=== PATIENT | male | born 1980 | race Caucasian/White ===

== ENCOUNTER 2019-03-09 15:00 | Emergency (ER) | payer SELFPAY ==
[2019-03-09] MEDS ORDERED: NA CHLORIDE 0.9% 1,000 ML ONE (15:43)
[2019-03-09] MEDS ORDERED: KETOROLAC 30 MG/ML INJ ONE (15:43)
[2019-03-09 15:48] LABS: Absolute Lymphocytes (CBC) 2.6 K/uL (0.7-4.9); Basophils % 0.2 % (0-1.3); Lymphocytes % 31.8 % (15.3-44.8); MPV 8.5 fL (7.6-11.3); RBC Red Blood Cell Count 4.81 M/uL (4.33-5.43)
[2019-03-09 15:50] LABS: Protime INR 1.04
--- NOTE | 2019-03-09 15:52 | RAD REPORT ---
EXAM DESCRIPTION: CT - Head Brain Wo Cont - 03/09/2019 3:42 pm CLINICAL HISTORY: Headache, left arm symptoms COMPARISON: None. TECHNIQUE: Axial 5 mm thick images of the head were obtained without IV contrast. All CT scans are performed using dose optimization technique as appropriate and may include automated exposure control or mA/KV adjustment according to patient size. FINDINGS: No intracranial hemorrhage, mass, edema or shift of mid-line structures. No acute infarcti on changes seen. No abnormal extra-axial fluid collections. Ventricles are normal. Mastoid air cells and visualized portions of the paranasal sinuses are clear of acute finding. No acute bony findings. IMPRESSION: Negative non-contrast CT head examination.
--- NOTE | 2019-03-09 16:58 | RAD REPORT ---
EXAM DESCRIPTION: US - Upper Ext Artery Uni Driss - 03/09/2019 4:34 pm CLINICAL HISTORY: Left arm pool with numbness COMPARISON: None. TECHNIQUE: Visual inspection of the left upper extremity arterial tree performed. Waveforms were obt ained along the length of left upper extremity. FINDINGS: Left subclavian and axillary arteries are widely patent. No focal abnormality seen. The le ft brachials, radial and ulnar arteries are also patent down to the wrist level. No focal flow restri cting lesion identified. IMPRESSION: No abnormality of the left upper extremity arterial tree noted.
[2019-03-09] MEDS ORDERED: METHYLPREDNISOLONE 125 MG INJ ONE (17:15)
--- NOTE | 2019-03-09 18:16 | EDPHYS ---
Physician Documentation [facility] Name: Eyal Tate Age: 38 yrs Sex: Male : 1980 Arrival Date: 03/09/2019 Time: 15:03 Bed 13 Private MD: ED Physician Samuel Tomlin HPI: 03/09 18:55 This 38 yrs old Male presents to ER via Ambulatory with complaints of Cool kdr and Numbness Of Arm. 18:55 The patient or guardian complains of decreased range of motion, pain, that is acute, kdr tenderness. The complaints affect the left bicep and left antecubital area. Context: The problem was sustained at work, resulted from unknown cause. Onset: The symptoms/episode began/occurred acutely. Treatment prior to arrival includes: no previous treatment. Modifying factors: The symptoms are alleviated by nothing. the symptoms are aggravated by movement, bending arm. Associated signs and symptoms: Pertinent positives: Cool and numb to hand and fingers. 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 - Social history:: Smoking status: Patient/guardian denies using tobacco. - Ebola Screening: : No symptoms or risks identified at this time. ROS: 18:55 Constitutional: Negative for fever, chills, and weight loss, Eyes: Negative for injury, kdr pain, redness, and discharge, Neck: Negative for injury, pain, and swelling, Cardiovascular: Negative for chest pain, palpitations, and edema, Respiratory: Negative for shortness of breath, cough, wheezing, and pleuritic chest pain, Abdomen/GI: Negative for abdominal pain, nausea, vomiting, diarrhea, and constipation, Back: Negative for injury and pain, : Negative for injury, bleeding, discharge, and swelling, Skin: Negative for injury, rash, and discoloration, Psych: Negative for depression, anxiety, suicide ideation, homicidal ideation, and hallucinations, Allergy/Immunology: Negative for hives, rash, and allergies, Endocrine: Negative for neck swelling, polydipsia, polyuria, polyphagia, and marked weight changes, Hematologic/Lymphatic: Negative for swollen nodes, abnormal bleeding, and unusual bruising. 18:55 MS/extremity: Positive for pain, tenderness. Exam: 18:55 Constitutional: This is a well developed, well nourished patient who is awake, alert, kdr and in no acute distress. Head/Face: Normocephalic, atraumatic. Eyes: Pupils equal round and reactive to light, extra-ocular motions intact. Lids and lashes normal. Conjunctiva and sclera are non-icteric and not injected. Cornea within normal limits. Periorbital areas with no swelling, redness, or edema. Neck: Trachea midline, no thyromegaly or masses palpated, and no cervical lymphadenopathy. Supple, full range of motion without nuchal rigidity, or vertebral point tenderness. No Meningismus. Chest/axilla: Normal chest wall appearance and motion. Nontender with no deformity. No lesions are appreciated. Cardiovascular: Regular rate and rhythm with a normal S1 and S2. No gallops, murmurs, or rubs. Normal PMI, no JVD. No pulse deficits. Respiratory: Lungs have equal breath sounds bilaterally, clear to auscultation and percussion. No rales, rhonchi or wheezes noted. No increased work of breathing, no retractions or nasal flaring. Abdomen/GI: Soft, non-tender, with normal bowel sounds. No distension or tympany. No guarding or rebound. No evidence of tenderness throughout. Back: No spinal tenderness. No costovertebral tenderness. Full range of motion. Skin: Warm, dry with normal turgor. Normal color with no rashes, no lesions, and no evidence of cellulitis. Neuro: Awake and alert, GCS 15, oriented to person, place, time, and situation. Cranial nerves II-XII grossly intact. Motor strength 5/5 in all extremities. Sensory grossly intact. Cerebellar exam normal. Normal gait. Psych: Awake, alert, with orientation to person, place and time. Behavior, mood, and affect are within normal limits. 18:55 Musculoskeletal/extremity: ROM: limited active range of motion, limited passive range of motion, in the left arm, Circulation is intact in all extremities. numbness, Minor subjective paresthesias to finger tips Vital Signs: 15:05 BP 131 / 105; Pulse 89; Resp 16; Temp 97.8; Pulse Ox 100% on R/A; Weight 77.11 kg; hb Height 6 ft. (182.88 cm); Pain 7/10; 16:00 BP 135 / 82; Pulse 72; Resp 18; Pulse Ox 99% on R/A; aj1 16:30 BP 124 / 88; Pulse 68; Resp 18; Pulse Ox 100% on R/A; aj1 17:00 BP 113 / 87; Pulse 72; Resp 18; Pulse Ox 100% on R/A; aj1 17:24 BP 105 / 66; Pulse 66; Resp 19; Pulse Ox 100% on R/A; aj1 18:06 BP 111 / 70; Pulse 71; Resp 18; Pulse Ox 100% on R/A; aj1 18:35 BP 120 / 86; Pulse 66; Resp 16; Pulse Ox 97% on R/A; aj1 15:05 Body Mass Index 23.06 (77.11 kg, 182.88 cm) hb MDM: 18:14 Patient medically screened. kdr 18:55 Data reviewed: vital signs, nurses notes, lab test result(s), radiologic studies. kdr Counseling: I had a detailed discussion with the patient and/or guardian regarding: the historical points, exam findings, and any diagnostic results supporting the discharge/admit diagnosis, lab results, radiology results, the need for outpatient follow up. ED course: The patient states he extended his left arm and felt a "pop" then all of his s/s resolved.. 03/09 15:24 Order name: CBC with Diff kdr 03/09 15:24 Order name: Chem 7 kdr 03/09 15:24 Order name: PT-INR kdr 03/09 15:57 Order name: CBC with Automated Diff EDIA 03/09 16:02 Order name: Protime (+INR) EDIA 03/09 16:06 Order name: Basic Metabolic Panel EDIA 03/09 15:31 Order name: CT Head Brain wo Cont kdr Administered Medications: 15:57 Drug: TORadol - Ketorolac 15 mg Route: IVP; Site: right antecubital; aj1 16:30 Follow up: Response: No adverse reaction; Pain is unchanged, physician notified aj1 15:57 Drug: NS 0.9% 1000 ml Route: IV; Rate: 1 bolus; Site: right antecubital; aj1 17:24 Follow up: IV Status: Completed infusion; IV Intake: 1000ml aj1 17:18 Drug: SOLU-Medrol 125 mg Route: IVP; Site: right antecubital; aj1 18:58 Follow up: Response: No adverse reaction aj1 Disposition: 03/09/19 18:14 Discharged to Home. Impression: Pain in left upper arm. - Condition is Stable. - Discharge Instructions: Musculoskeletal Pain, Heat Therapy, [id number]. - Prescriptions for Ibuprofen 800 mg Oral Tablet - take 1 tablet by ORAL route every 8 hours As needed take with food; 30 tablet. Medrol (Bhargav) 4 mg Oral Tablets, Dose Pack - take 1 tablet by ORAL route as directed - follow package instructions; 1 packet. - Medication Reconciliation Form, Thank You Letter form. - Follow up: Private Physician; When: 2 - 3 days; Reason: If symptoms return, Further diagnostic work-up, Recheck today's complaints, Continuance of care, Re-evaluation by your physician. - Problem is new. - Symptoms are resolved. Signatures: Dispatcher [employer] EDReina Berumen RN RN aj1 Samuel Tomlin MD MD [facility] Haleigh Grubbs RN RN Corrections: (The following items were deleted from the chart) 19:04 18:14 03/09/2019 18:14 Discharged to Home. Impression: Pain in left upper arm. aj1 Condition is Stable. Forms are Medication Reconciliation Form, Thank You Letter, Antibiotic Education, Prescription Opioid Use. Follow up: Private Physician; When: 2 - 3 days; Reason: If symptoms return, Further diagnostic work-up, Recheck today's complaints, Continuance of care, Re-evaluation by your physician. Problem is new. Symptoms are resolved. kdr
--- NOTE | 2019-03-09 18:16 | ER ---
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 hb VAN NEGATIVE. Hand is cool to touch and pale, radial pulse +2 in triage. Transition of care: patient was not received from another setting of care. Onset of symptoms was March 09, 2019 at 13:00. Risk Assessment: Do you want to hurt yourself or someone else? Patient reports no desire to harm self or others. Initial Sepsis Screen: Does the patient meet any 2 criteria? No. Patient's initial sepsis screen is negative. Does the patient have a suspected source of infection? No. Patient's initial sepsis screen is negative. Care prior to arrival: None. 15:04 Method Of Arrival: Ambulatory hb 15:04 Acuity: ANNY 2 hb 15:[address] Tomlin notified. hb Triage Assessment: 15:04 General: Appears in no apparent distress. Behavior is calm, cooperative. Pain: Pain hb currently is 7 out of 10 on a pain scale. Neuro: Level of Consciousness is awake, alert, obeys commands, Oriented to person, place, time, situation. Cardiovascular: Capillary refill < 3 seconds Patient's skin is warm and dry. Respiratory: Airway is patent Respiratory effort is even, unlabored, Respiratory pattern is regular, symmetrical. Musculoskeletal: left hand pale and cool, radial pulse 2+. 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 - Social history:: Smoking status: Patient/guardian denies using tobacco. - Ebola Screening: : No symptoms or risks identified at this time. Screenin:15 Abuse screen: Denies threats or abuse. Denies injuries from another. Nutritional aj1 screening: No deficits noted. Tuberculosis screening: No symptoms or risk factors identified. 19:03 Fall Risk None identified. aj1 Assessment: 15:10 Reassessment: Left hand now pink and warm. Pt still reports numbness and pain in hand. Dr. Tomlin and Gilma RN notified. . 15:15 General: Appears in no apparent distress. uncomfortable, Behavior is calm, cooperative, aj1 appropriate for age. Pain: Complains of pain in back and left bicep Pain does not radiate. Pain currently is 6 out of 10 on a pain scale. 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 Gait is steady, Speech is normal, Facial symmetry appears normal, Reports numbness in left arm Left arm appears pale, but radial pulse is palpable. Cardiovascular: Patient's skin is warm and dry. Respiratory: Airway is patent Respiratory effort is even, unlabored, Respiratory pattern is regular, symmetrical. GI: No signs and/or symptoms were reported involving the gastrointestinal system. : No signs and/or symptoms were reported regarding the genitourinary system. EENT: No signs and/or symptoms were reported regarding the EENT system. Derm: Skin is pink, warm \T\ dry. paleness noted to left arm. Musculoskeletal: Range of motion: intact in all extremities. 16:10 Reassessment: Patient appears in no apparent distress at this time. No changes from aj1 previously documented assessment. Patient and/or family updated on plan of care and expected duration. Pain level reassessed. Patient is alert, oriented x 3, equal unlabored respirations, skin warm/dry/pink. Patient reports that he is still having pain in his arm and back. Notified Dr. Tomlin, no orders received at this time. 17:22 Reassessment: Patient and/or family updated on plan of care and expected duration. Pain aj1 level reassessed. Patient is alert, oriented x 3, equal unlabored respirations, skin warm/dry/pink. Patient's arm remains pale, patient reports continued numbness. Patient also states that he has some abdominal pain since the last time I rounded on him, but it has resolved at this time. Denies any other complaints at this time. Patient was given call carvalho and instructed to notify staff of any concerns as they arise. 18:03 Reassessment: Patient states that he straightened his arm and felt a pop and then his aj1 arm felt better. Patient reports its his back that is bothering him now. Reports that he has been having back pain for the past [address] Tomlin of patient's complaints. Dr. Tomlin states he will go see the patient. Vital Signs: 15:05 BP 131 / 105; Pulse 89; Resp 16; Temp 97.8; Pulse Ox 100% on R/A; Weight 77.11 kg; hb Height 6 ft. (182.88 cm); Pain 7/10; 16:00 BP 135 / 82; Pulse 72; Resp 18; Pulse Ox 99% on R/A; aj1 16:30 BP 124 / 88; Pulse 68; Resp 18; Pulse Ox 100% on R/A; aj1 17:00 BP 113 / 87; Pulse 72; Resp 18; Pulse Ox 100% on R/A; aj1 17:24 BP 105 / 66; Pulse 66; Resp 19; Pulse Ox 100% on R/A; aj1 18:06 BP 111 / 70; Pulse 71; Resp 18; Pulse Ox 100% on R/A; aj1 18:35 BP 120 / 86; Pulse 66; Resp 16; Pulse Ox 97% on R/A; aj1 15:05 Body Mass Index 23.06 (77.11 kg, 182.88 cm) hb ED Course: 15:03 Patient arrived in ED. am2 15:05 Triage completed. hb 15:05 Arm band placed on. hb 15:11 Samuel Tomlin MD is Attending Physician. kdr 15:15 Patient has correct armband on for positive identification. Bed in low position. Call aj1 light in reach. Side rails up X 1. monitor car operator on. Pulse ox on. NIBP on. 15:15 No provider procedures requiring assistance completed. Initial lab(s) drawn, by me, aj1 sent to lab. Inserted saline lock: 18 gauge in right antecubital area, using aseptic technique. Blood collected. 15:16 Reina Holly, RN is Primary Nurse. aj1 15:41 CT completed. Patient tolerated procedure well. Patient moved to MD via wheelchair. al Patient moved back from MD. 19:03 IV discontinued, intact, bleeding controlled, No redness/swelling at site. Pressure aj1 dressing applied. Administered Medications: 15:57 Drug: TORadol - Ketorolac 15 mg Route: IVP; Site: right antecubital; aj1 16:30 Follow up: Response: No adverse reaction; Pain is unchanged, physician notified aj1 15:57 Drug: NS 0.9% 1000 ml Route: IV; Rate: 1 bolus; Site: right antecubital; aj1 17:24 Follow up: IV Status: Completed infusion; IV Intake: 1000ml aj1 17:18 Drug: SOLU-Medrol 125 mg Route: IVP; Site: right antecubital; aj1 18:58 Follow up: Response: No adverse reaction aj1 Intake: 17:24 IV: 1000ml; Total: 1000ml. aj1 Outcome: 18:14 Discharge ordered by . kdr 19:03 Discharged to home ambulatory. aj1 19:03 Condition: good 19:03 Discharge instructions given to patient, Instructed on discharge instructions, follow up and referral plans. medication usage, Demonstrated understanding of instructions, follow-up care, medications, Prescriptions given X 2. 19:04 Patient left the ED. 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 VAN hb NEGATIVE. Hand is cool to touch and pale, radial pulse +2 in triage. 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 VAN hb NEGATIVE. Hand is cool to touch and pale, radial pulse +2 in triage. hb
[2019-03-09 19:13] VITALS: TEMP 97.8
[2019-03-09 19:21] VITALS: BP 120/86; O2SAT 97
== END 2019-03-09 19:04 | disposition home or self-care (01) ==
LOC: ER 15:00
DX: M79.622 Pain in left upper arm (principal); Z88.6 Allergy status to analgesic agent
CPT/HCPCS: 36415; 70450; 80048; 85025; 85610; 93931; 96361; 96374; 96375; 99285; J2930; J7030